=== PATIENT | female | born 1930 | race Caucasian/White ===

== ENCOUNTER → 2016-07-15 | Outpatient (CLI) | payer OTHER, MEDICARE ==
[2015-07-16 13:28] VITALS: BP 119/65; PULSE 67
[~2016-07-15] MED LIST: ASPI325T4 PO; CHOL100026 PO; ESOM20CA PO; FERR1TAB13 PO; LETR2TAB PO; LEVO-217 PO; LISI10TA PO; MULT-506 PO
[2016-07-15 12:38] VITALS: BP 128/65; PULSE 61; TEMP 36.8; O2SAT 94
--- NOTE | 2016-07-15 13:22 | Radiation Oncology Follow-Up ---
Radiation Oncology Follow-Up Date of Visit Jul 15, 2016. Reason For Visit Annual follow-up Radiation Completion Date APBI 11/19/12 Diagnosis (1) Breast cancer Status: Resolved Onset Date: 08/19/2011 Stage: l (A) Permanent Comment: Abnormal right breast mammogram Status post biopsy revealing infiltrating ductal carcinoma Status post partial mastectomy and sentinel lymph node biopsy Stage [id number] Estrogen receptor positive, progesterone receptor positive, HER-2/susan negative Status post completion of radiation therapy 11/19/2012 utilizing accelerated partial breast treatment received 3850 cGy Last Edited By: Elke Childress on Jul 16, 2015 14:03 Interim History She's been doing well over this past year. She has noted no changes to her breasts. She has noticed no masses or tenderness and no change of the axilla. She's had no swelling of her arm. She is up-to-date on mammography. She has completed the Femara therapy. She was able to tolerate Femara. Recently she had side effects to tamoxifen. She had a mammogram 04/16/2016. This was negative with no evidence of malignancy. Normal interval follow-up was recommended for 12 months. BI-RADS Category 1 Allergies Coded Allergies: No Known Allergies (Unverified , 01/09/11) Home Medications Scheduled Aspirin (Aspirin), 325 MG PO DAILY Cholecalciferol (Vitamin D High Potency), 1,000 INTUNIT PO DAILY Ferrous Sulfate (Kp Ferrous Sulfate), 1 TAB PO DAILY Levothyroxine (Levothroid), 0.05 MG PO DAILY Lisinopril (Prinivil), 10 MG PO DAILY Multivitamin (Multivitamin), 1 TAB PO DAILY Scheduled PRN Esomeprazole Magnesium (Nexium), 40 MG PO DAILY PRN for Indigestion Review of Systems Gastrointestinal: Symptoms: WNL Oral: Symptoms: No Problems Respiratory: Symptoms: WNL Urinary: Symptoms: WNL Skin: Symptoms: No Problems Breast: Right Upper Arm Measurement: 26.4 Right Mid Arm Measurement: 23.4 Right Wrist Measurement: 15.8 Left Upper Arm Measurement: 26.4 Left Mid Arm Measurement: 22.6 Left Wrist Measurement: 15.1 Arm Dominence: Right Physical Exam Vital Signs Date Time Temp Pulse Resp B/P Pulse Ox O2 Delivery O2 Flow Rate FiO2 07/15/16 12:38 36.8 61 16 128/65 94 Pain: Patient Pain Scale: 0 - 10 Initial Pain Intensity: 0.0 Fatigue: None General Appearance: no apparent distress Eyes: normal inspection, EOMI ENT: normal ENT inspection, hearing grossly normal Neck: no adenopathy, thyroid normal Respiratory/Chest: lungs clear, no respiratory distress, no accessory muscle use Breast: Breast examination reveals well-healed incisions of the right breast. There is an oval area of telangiectasia in the area of her incision. There are mild fibrous changes above the incision area. There are no masses or tenderness no axillary adenopathy. There are no skin retractions or nipple changes. Using the Hume score cosmesis she has a good outcome. The left breast showed no masses or tenderness and no axillary adenopathy. Cardiovascular: regular rate, rhythm, no gallop, no murmur Abdomen: non tender, soft Extremities: no pedal edema Neurologic/Psychiatric: no motor/sensory deficits, alert, normal mood/affect Skin: warm/dry Lymphatic: no adenopathy Additional Studies Mammography as reviewed above. Assessment & Plan Continue regular follow-up with Dr. Joshua. She has been discharged from Dr. Patel. She has mammography scheduled for March 2017. Today we reviewed the telangiectasia which is a later side effect of radiation. This was slightly more prominent the last year. We asked her to return to our office in 1 year. She may call if she has any questions or concerns in the interim. Total Time In Follow-Up I spent 20 minutes speaking to the patient performing examination. I spent 15 minutes reviewing information completing this note. Copy To Yaya Joshua M.D. Problem Qualifiers (1) Breast cancer: Breast location: central portion of breast Patient sex: female Laterality: right Qualified Codes: C50.111 - Malignant neoplasm of central portion of right female breast
== END | disposition home or self-care (01) ==
LOC: C.ONC 12:33
PROVIDERS: ATTEND Physician Assistant Medical
DX: Z08 Encounter for follow-up examination after completed treatment for malignant neoplasm (principal); Z92.3 Personal history of irradiation; Z85.3 Personal history of malignant neoplasm of breast

== ENCOUNTER → 2017-02-26 | Outpatient (CLI) | payer OTHER, MEDICARE ==
[~2017-02-26] MED LIST changes: -LETR2TAB PO
[2017-02-26 12:30] LABS: BASO % 0.7 %; BASO ABS # 0.03 K/uL (0-0.2); COMPLETE YES; EOS % 2.2 %; HEMATOCRIT 40.4 % (37-47); IG% 0.2 %; LYMPH % 31.1 %; LYMPH ABS # 1.43 K/uL (1.2-3.4); MEAN CELL VOLUME 92.4 fL (80-100); MEAN CORPUSCULAR HEMOGLOBIN 30.9 pg (25-34); MEAN CORPUSCULAR HGB CONC 33.4 g/dl (32-36); MEAN PLATELET VOLUME 10.7 fL (7.4-10.4); NEUT % 57.8 %; PLATELET COUNT 227 K/uL (130-400); RED BLOOD COUNT 4.37 M/uL (4.2-5.4)
[2017-02-26 12:53] LABS: BLOOD UREA NITROGEN 19 mg/dl (7-18); CALCIUM 9.5 mg/dl (8.5-10.1); CARBON DIOXIDE 25 mmol/L (21-32); CHLORIDE 105 mmol/L (98-107); CREATININE 1.03 mg/dl (0.60-1.20); GLUCOSE 103 mg/dl (70-99); POTASSIUM 4.1 mmol/L (3.5-5.1); SODIUM 137 mmol/L (136-145)
== END | disposition home or self-care (01) ==
LOC: C.LABPBG 08:26
PROVIDERS: ATTEND Internal Medicine Geriatric Medicine
DX: E03.9 Hypothyroidism, unspecified (principal); I10 Essential (primary) hypertension; Z86.2 Personal history of diseases of the blood and blood-forming organs and certain disorders involving the immune mechanism

== ENCOUNTER → 2017-04-29 | Outpatient (CLI) | payer OTHER, MEDICARE | END | disposition home or self-care (01) | LOC: C.MAMM 10:55 | PROVIDERS: ATTEND Internal Medicine Geriatric Medicine | DX: M19.90 Unspecified osteoarthritis, unspecified site (principal); Z85.3 Personal history of malignant neoplasm of breast; M85.80 Other specified disorders of bone density and structure, unspecified site ==